=== PATIENT | male | born 1950 | race Caucasian/White ===

== ENCOUNTER 2018-05-10 08:32 | Day surgery (SDC) | payer MEDICARE ==
[~2018-05-10 08:32] MED LIST: AMLODIPINE5 MG PO; ASPIRIN EC81 MG PO; ATORVASTATIN CA40 MG PO; AVAPRO300 MG PO; CARVEDILOL25 MG PO; CETIRIZINE10 MG PO; COLON CLEANSE1 CAP PO; FISH OIL1000 M1 PO; MONTELUKAST SOD10 MG PO; MULTI VIT PO; PANTOPRAZOLE SO40 MG PO; STOOL SOFTENER100 M1 PO; TAMSULOSIN0.4 MG PO; VITAMIN C1000 MG PO; VITAMIN D31000 UNI1 PO
[2018-05-10 10:40] VITALS: BP 117/58
== END 2018-05-10 10:50 | disposition home or self-care (01) ==
LOC: ENDO 08:32 → ORM 11:00 → ENDO 11:00
PROVIDERS: ATTEND Internal Medicine Gastroenterology
PROC: 0DB48ZX Excision of Esophagogastric Junction, Via Natural or Artificial Opening Endoscopic, Diagnostic (ICD-10-PCS; principal; 2018-05-10)
DX: K21.0 Gastro-esophageal reflux disease with esophagitis (principal); K29.70 Gastritis, unspecified, without bleeding; Q40.8 Other specified congenital malformations of upper alimentary tract; K59.09 Other constipation; K63.89 Other specified diseases of intestine; K57.30 Diverticulosis of large intestine without perforation or abscess without bleeding; K64.4 Residual hemorrhoidal skin tags; K64.8 Other hemorrhoids; I10 Essential (primary) hypertension; E78.00 Pure hypercholesterolemia, unspecified; N40.0 Benign prostatic hyperplasia without lower urinary tract symptoms; Z80.0 Family history of malignant neoplasm of digestive organs; Z86.010 Personal history of colon polyps

== ENCOUNTER 2020-10-31 13:39 | Emergency (ER) | payer MEDICARE ==
[~2020-10-31] VITALS: Ht 180.3 cm; Wt 100.0 kg
[2020-10-31 14:32] LABS: HEMATOCRIT 37.7 % (39.0-50.0); HEMOGLOBIN 12.2 g/dl (14.0-18.0); IMMATURE GRANULOCYTES 0.3 % (0.0-5.0); MEAN CELL VOLUME 94.7 fL CALC (80.0-100.0); MEAN CORPUSCULAR HGB 30.7 pG CALC (26.0-32.0); MEAN CORPUSCULAR HGB CONC 32.4 g/dL CAL (32.0-36.0); NEUT# 4.76 thou/uL (1.82-7.42); RED BLOOD COUNT 3.98 mill/uL (4.70-6.10); RED CELL DISTRI WIDTH 12.5 % (11.5-15.5)
[2020-10-31 14:49] LABS: ALBUMIN 4.2 g/dL (3.2-5.0); ALKALINE PHOSPHATASE 126 u/l (38-126); ANION GAP 12 (6-22 (CALC)); BILIRUBIN, TOTAL 0.8 mg/dL (0.0-1.4); BUN 20 mg/dL (8-23); BUN/CREATININE RATIO 13 (12-20 (CALC)); CARBON DIOXIDE 28 mmol/l (22-30); CHLORIDE 102 mmol/l (95-108); CREATININE 1.5 mg/dL (0.7-1.3); GFR 46 ML/MIN (>=60 (CALC)); GFR FOR AFR.AMER. 56 ML/MIN (>=60 (CALC)); LIPASE 133 u/l (23-300); POTASSIUM 4.5 mmol/l (3.5-5.1); SGOT/AST 28 u/l (19-48); SODIUM 136 mmol/l (137-146); TOTAL PROTEIN 7.5 g/dL (6.3-8.2)
[2020-10-31 14:50] LABS: ACT PARTIAL THROMBO TIME 24.1 SECONDS (20.0-32.5); INTERNATIONAL NORMALIZED RATIO 1.1 RATIO (0.7-1.3); PROTHROMBIN TIME 10.7 SECONDS (9.0-12.5)
[2020-10-31] MEDS ORDERED: ISORDIL10 MG PO (15:58)
[2020-10-31] MEDS ORDERED: LOSARTAN POTASS50 MG PO (15:59)
[2020-10-31 18:08] VITALS: BP 156/73
== END 2020-10-31 18:16 | disposition home or self-care (01) ==
LOC: ED 13:39
DX: R07.9 Chest pain, unspecified (principal); I10 Essential (primary) hypertension; E78.5 Hyperlipidemia, unspecified; Z20.822 Contact with and (suspected) exposure to COVID-19
CPT/HCPCS: Q9967